=== PATIENT | male | born 1965 | race Caucasian/White ===

== ENCOUNTER 2017-08-02 11:00 | Emergency (ER) | payer OTHER ==
[~2017-08-02] VITALS: Ht 185.4 cm; Wt 95.2 kg
[~2017-08-02 11:00] MED LIST: ALBU90OI61 INH; AMLO5 PO; BENZ100A PO; GUAI600T33 PO; LISI20 PO; Mobic15 MG PO; NAPR550 PO; PRED20 PO
[2017-08-02 11:50] LABS: BASOPHILS ABSOLUTE AUTO 0.08 K/mm3 (0.00-0.23); BASOPHILS PERCENT AUTO 1 % (0-2); EOSINOPHILS ABSOLUTE AUTO 0.08 K/mm3 (0.00-0.68); EOSINOPHILS PERCENT AUTO 1 % (0-6); Hematocrit 40.2 % (37.0-53.0); Hemoglobin 14.2 g/dL (13.5-17.5); IMMATURE GRAN ABSOLUTE AUTO 0.03 K/mm3 (0.00-0.10); IMMATURE GRAN PERCENT AUTO 0 % (0-1); LYMPHOCYTES ABSOLUTE AUTO 1.69 K/mm3 (0.84-5.20); LYMPHOCYTES PERCENT AUTO 25 % (21-46); MONOCYTES ABSOLUTE AUTO 0.46 K/mm3 (0.16-1.47); MONOCYTES PERCENT AUTO 7 % (4-13); Mean Corpuscular HGB 32.4 pg (26.0-34.0); Mean Corpuscular HGB Conc 35.3 g/dL (31.5-36.5); Mean Corpuscular Volume 92 fL (80-100); Mean Platelet Volume 8.5 fL (9.1-12.4); NEUTROPHILS ABSOLUTE AUTO 4.41 K/mm3 (1.96-9.15); NEUTROPHILS PERCENT AUTO 65 % (41-73); Platelet Count 192 K/mm3 (150-400); RDW Coefficient Variation 13.6 % (11.7-14.2); RDW Standard Deviation 45.9 fL (35.1-46.3); Red Blood Cell Count 4.38 M/mm3 (4.30-5.90); White Blood Cell Count 6.75 K/mm3 (4.00-11.30)
[2017-08-02 12:12] LABS: Alanine Aminotransfer (ALT/SGP 36 U/L (12-78); Albumin/Globulin Ratio 0.9 (0.8-1.8); Alk Phos 97 U/L (50-136); Anion Gap 8 mmol/L (6-16); Aspartate Aminotrans (AST/SGOT 55 U/L (12-37); Bilirubin, Total 0.4 mg/dL (0.1-1.0); Blood Urea Nitrogen 13 mg/dL (8-24); Bun/Creatinine Ratio 18.7 (12.0-20.0); CO2, Blood 29 mmol/L (21-32); Calcium, Blood 7.5 mg/dL (8.5-10.1); Chloride, Blood 102 mmol/L (98-108); Globulin, Blood 3.2 g/dL (2.2-4.0); Glomerular Filtration Rate >60 (60-); Glucose, Blood 118 mg/dL (70-99); Potassium, Blood 3.2 mmol/L (3.5-5.5); Sodium, Blood 139 mmol/L (136-145); Total Protein, Blood 6.2 g/dL (6.4-8.2)
[2017-08-02 12:18] LABS: Source, Urine Clean Catch
[2017-08-02 12:20] LABS: Bilirubin, Urine Neg (Neg); Blood, Urine Neg (Neg); Glucose Qualitative, Urine Neg (Neg); Ketones, Urine Neg (Neg); Leukocyte Esterase, Urine Neg (Neg); Nitrite, Urine Neg (Neg); Protein, Urine Neg (Neg); Specific Gravity, Urine 1.015 (1.003-1.022); Urobilinogen, Urine NORM (Normal)
[2017-08-02 12:30] LABS: Appearance, Urine Clear (Clear); Color, Urine Yellow (P-Yellow)
[2017-08-02] MEDS ORDERED: Zofran Odt8 MG SL (16:01)
[2017-08-02] MEDS ORDERED: MOTION RELIEF25 MG PO (16:01)
== END 2017-08-02 16:16 | disposition home or self-care (01) ==
LOC: ER 11:00
PROVIDERS: Emergency Medicine
DX: R42 Dizziness and giddiness (principal); I10 Essential (primary) hypertension; F17.210 Nicotine dependence, cigarettes, uncomplicated; Z79.899 Other long term (current) drug therapy
CPT/HCPCS: 36415; 70450; 80053; 81003; 83690; 85025; 93005; 93010; 96374; 96375; 99284; J2060; J2405

== ENCOUNTER 2020-06-17 09:18 | Emergency (ER) | payer BC ==
[~2020-06-17] VITALS: Ht 177.8 cm; Wt 95.2 kg
[~2020-06-17 09:18] MED LIST changes: +MOTION RELIEF25 MG PO; +Zofran Odt8 MG SL
[2020-06-17 10:17] LABS: BASOPHILS ABSOLUTE AUTO 0.08 K/mm3 (0.00-0.23); BASOPHILS PERCENT AUTO 1 % (0-2); EOSINOPHILS PERCENT AUTO 1 % (0-6); Hematocrit 52.1 % (37.0-53.0); Hemoglobin 18.1 g/dL (13.5-17.5); IMMATURE GRAN ABSOLUTE AUTO 0.05 K/mm3 (0.00-0.10); IMMATURE GRAN PERCENT AUTO 1 % (0-1); LYMPHOCYTES ABSOLUTE AUTO 1.43 K/mm3 (0.84-5.20); LYMPHOCYTES PERCENT AUTO 14 % (21-46); MONOCYTES ABSOLUTE AUTO 0.55 K/mm3 (0.16-1.47); MONOCYTES PERCENT AUTO 5 % (4-13); Mean Corpuscular HGB 33.9 pg (26.0-34.0); Mean Corpuscular HGB Conc 34.7 g/dL (31.5-36.5); Mean Corpuscular Volume 98 fL (80-100); Mean Platelet Volume 9.5 fL (9.1-12.4); NEUTROPHILS ABSOLUTE AUTO 8.39 K/mm3 (1.96-9.15); NEUTROPHILS PERCENT AUTO 79 % (41-73); Platelet Count 286 K/mm3 (150-400); RDW Coefficient Variation 13.2 % (11.7-14.2); RDW Standard Deviation 47.7 fL (35.1-46.3); Red Blood Cell Count 5.34 M/mm3 (4.30-5.90)
[2020-06-17 10:30] LABS: Alanine Aminotransfer (ALT/SGP 38 U/L (12-78); Albumin, Blood 3.9 g/dL (3.4-5.0); Alk Phos 121 U/L (50-136); Anion Gap 10 mmol/L (6-16); Aspartate Aminotrans (AST/SGOT 62 U/L (12-37); Bilirubin, Total 1.2 mg/dL (0.1-1.0); Blood Urea Nitrogen 7 mg/dL (8-24); CO2, Blood 27 mmol/L (21-32); Calcium, Blood 9.3 mg/dL (8.5-10.1); Chloride, Blood 100 mmol/L (98-108); Creatinine, Blood 0.59 mg/dL (0.60-1.20); Globulin, Blood 3.8 g/dL (2.2-4.0); Glomerular Filtration Rate >60 (60-); Glucose, Blood 109 mg/dL (70-99); Potassium, Blood 3.9 mmol/L (3.5-5.5); Sodium, Blood 137 mmol/L (136-145); Total Protein, Blood 7.7 g/dL (6.4-8.2); Troponin I <0.015 ng/mL (0.000-0.040)
[2020-06-17] MEDS ORDERED: ASPI81CH PO (10:53)
[2020-10-15] MEDS ORDERED: GABA100 (12:18)
[2020-10-15] MEDS ORDERED: SERT25 PO (12:18)
[2020-10-15] MEDS ORDERED: Catapres-Tts 21 EACH (12:18)
== END 2020-06-17 13:46 | disposition home or self-care (01) ==
LOC: ER 09:18
PROVIDERS: Emergency Medicine
DX: B34.9 Viral infection, unspecified (principal); I10 Essential (primary) hypertension; F17.210 Nicotine dependence, cigarettes, uncomplicated; Z79.899 Other long term (current) drug therapy
CPT/HCPCS: 36415; 71046; 80053; 83690; 83880; 84484; 85025; 93005; 93010; 99285-25

== ENCOUNTER 2021-03-22 15:58 | Emergency (ER) | payer OTHER ==
[~2021-03-22] VITALS: Ht 175.3 cm; Wt 81.7 kg
[~2021-03-22 15:58] MED LIST changes: +ASPI81CH PO; +Catapres-Tts 21 EACH; +GABA100; +SERT25 PO
[2021-03-22] MEDS ORDERED: Norco 5-325 Ta1 EACH PO (17:12)
== END 2021-03-22 17:23 | disposition home or self-care (01) ==
LOC: ER 15:58
DX: S22.069A Unspecified fracture of T7-T8 vertebra, initial encounter for closed fracture (principal); I10 Essential (primary) hypertension; Z79.899 Other long term (current) drug therapy; F17.210 Nicotine dependence, cigarettes, uncomplicated; W01.0XXA Fall on same level from slipping, tripping and stumbling without subsequent striking against object, initial encounter
CPT/HCPCS: 72070; 99283-25

== ENCOUNTER 2021-11-05 08:33 | Inpatient (IN) | payer OTHER ==
[~2021-11-05] VITALS: Ht 175.3 cm; Wt 95.6 kg
[~2021-11-05 08:33] MED LIST changes: +B COMPLEX FORM0.4 MG PO; +CATAPRES0.1 MG PO; +CHLO25 PO; +GABA300 PO; +METO25 PO; +Norco 5-325 Ta1 EACH PO; +POTCHL20ER PO; +TRAZ50 PO
[2021-11-05 09:05] LABS: BASOPHILS ABSOLUTE AUTO 0.11 K/mm3 (0.00-0.23); BASOPHILS PERCENT AUTO 1 % (0-2); EOSINOPHILS ABSOLUTE AUTO 0.05 K/mm3 (0.00-0.68); EOSINOPHILS PERCENT AUTO 1 % (0-6); Hematocrit 38.3 % (37.0-53.0); Hemoglobin 13.9 g/dL (13.5-17.5); IMMATURE GRAN PERCENT AUTO 1 % (0-1); LYMPHOCYTES ABSOLUTE AUTO 1.42 K/mm3 (0.84-5.20); LYMPHOCYTES PERCENT AUTO 16 % (21-46); MONOCYTES ABSOLUTE AUTO 0.55 K/mm3 (0.16-1.47); MONOCYTES PERCENT AUTO 6 % (4-13); Mean Corpuscular HGB 34.8 pg (26.0-34.0); Mean Corpuscular HGB Conc 36.3 g/dL (31.5-36.5); Mean Corpuscular Volume 96 fL (80-100); NEUTROPHILS PERCENT AUTO 75 % (41-73); NRBC ABSOLUTE 0.02 K/mm3 (0.00-0.02); NRBC Auto 0.2 /100 WBC (0.0-0.2); Platelet Count 161 K/mm3 (150-400); RDW Coefficient Variation 15.9 % (11.7-14.2); RDW Standard Deviation 54.4 fL (35.1-46.3); White Blood Cell Count 8.93 K/mm3 (4.00-11.30)
[2021-11-05 09:17] LABS: Alanine Aminotransfer (ALT/SGP 154 U/L (12-78); Albumin, Blood 1.4 g/dL (3.4-5.0); Albumin/Globulin Ratio 0.4 (0.8-1.8); Alk Phos 873 U/L (50-136); Anion Gap 9 mmol/L (6-16); Aspartate Aminotrans (AST/SGOT 452 U/L (12-37); Bilirubin, Direct 4.4 mg/dL (0.0-0.3); Bilirubin, Indirect 3.3 mg/dL (0.1-0.7); Bilirubin, Total 7.7 mg/dL (0.1-1.0); Blood Urea Nitrogen 4 mg/dL (8-24); CO2, Blood 34 mmol/L (21-32); Calcium, Blood 7.6 mg/dL (8.5-10.1); Chloride, Blood 85 mmol/L (98-108); Creatinine, Blood 0.58 mg/dL (0.60-1.20); Globulin, Blood 3.8 g/dL (2.2-4.0); Glomerular Filtration Rate 116 (60-); Glucose, Blood 102 mg/dL (70-99); Magnesium, Blood 2.5 mg/dL (1.6-2.4); Potassium, Blood 3.9 mmol/L (3.5-5.5); Sodium, Blood 128 mmol/L (136-145); Total Protein, Blood 5.2 g/dL (6.4-8.2)
[2021-11-05 09:20] LABS: Ethanol (Alcohol), Blood, Med <3 mg/dL
[2021-11-05 09:40] LABS: Source, Urine Clean Catch
[2021-11-05 09:46] LABS: Appearance, Urine Clear (Clear); Blood, Urine Neg (Neg); Color, Urine Amber (P-Yellow); Glucose Qualitative, Urine Neg (Neg); Ketones, Urine 1+ (Neg); Leukocyte Esterase, Urine 1+ (Neg); Nitrite, Urine Neg (Neg); Protein, Urine 1+ (Neg); Urobilinogen, Urine 3+ (Normal)
[2021-11-05 09:49] LABS: Base Excess Venous 18.7 mmol/L; Bicarbonate Venous 40.6 mmol/L (24.0-30.0); PCO2 Venous 44.9 mmHg (38-42)
[2021-11-05 09:50] LABS: pH Blood Venous 7.57 (7.34-7.37)
[2021-11-05 09:50] LABS: Bilirubin, Urine 3+ (Neg)
[2021-11-05 09:57] LABS: Bacteria Rare /hpf; Red Blood Cells, Urine Not Seen /hpf (0-2); Squamous Epithelial Cells Not Seen /hpf (Few)
[2021-11-05 10:00] LABS: U Amphetamine Screen Not Detected; U Barbituate Screen Not Detected; U Benzodiazapine Screen DETECTED; U Buprenorphine Screen Not Detected; U Cannabinoids Screen Not Detected; U Cocaine Screen Not Detected; U Methadone Screen Not Detected; U Methamphetamine Screen Not Detected; U Opiates Screen Not Detected; U Oxycodone Screen Not Detected; U Phencyclidine Screen Not Detected; U Propoxyphene Screen Not Detected
[2021-11-05 10:01] LABS: International Normalized Ratio 1.49; Prothrombin Time Results 15.2 Sec (9.7-11.5)
[2021-11-05 10:02] LABS: Influenza A, PCR NEGATIVE (NEGATIVE); Influenza B, PCR NEGATIVE (NEGATIVE); Resp Syncytial Virus, PCR NEGATIVE (NEGATIVE); SARS-Cov-2 (COVID-19) PCR, MMC NEGATIVE (NEGATIVE)
[2021-11-05] MEDS ORDERED: METO50 PO (11:35)
[2021-11-05] MEDS ORDERED: AMLODIPINE BESY10 MG PO (11:36)
[2021-11-05] MEDS ORDERED: CLON.2 PO (11:36)
[2021-11-05] MEDS ORDERED: GABA100 PO (11:37)
[2021-11-05 14:00] LABS: Hematocrit 37.2 % (37.0-53.0); Hemoglobin 13.3 g/dL (13.5-17.5)
--- NOTE | 2021-11-05 18:17 | NUR ---
SHIFT SUMMARY PT ARRIVED TO PCU AT 1500, HE WAS ALERT AND ORIENTED TO SELF, PLACE, FAMILY BUT NOT TO DAY. SPO2 94% VIA 3L NC, HR AND BP STABLE. HE DENIED FEELINGS OF NAUSEA/VOMITTING, PAIN, NOR DID HE APPEAR TREMULOUS. SEE [facility] ASSESSMENT FOR ALCOHOL WITHDRAW. PT REPORTED THAT HIS LAST DRINK WAS LAST Wednesday10/29/21 BUT THIS NURSE SPOKE WITH SHELLEY VARGAS WHO IS THE PT'S EX BUT CURRENT SIGNIFICANT OTHER AND SHE REPORTED THAT HE LAST DRINK WAS WEDNESDAY NIGHT 11/03, WILL PASS ON TO REPORT. PER REPORT FROM ER NURSE, PT IS UNSTEADY ON HIS FEET AND IS A 2 PERSON ASSIST PER [facility]ELDER REPORT. PT HAS BEEN INCONTINENT OF BOTH URINE AND STOOL SINCE ADMISSION, DRY/CLEAN BRIEFS IN PLACE. SANDOSTATIN IS INFUSING PER EMAR ORDERS RIGHT FOREARM IV. HE WAS ORIENTED TO ROOM/UNIT WELL CALL LIGHT USE. HE IS ON A CLEAR LIQUID DIET AND WAS ABLE TO TOLARATE PO INTAKE. NO OTHER ACUTE CHANGES NOTED. WILL CONTINUE TO MONITOR UNITL REPORT GIVEN. CALL LIGHT IN REACH, BED ALARM ON.
--- NOTE | 2021-11-05 21:50 | NUR ---
ASSUMPTION OF CARE Assumed care of pt at 1900. Patient laying in bed. 2L NC in place. Resting with eyes closed and in no apparent distress.
[2021-11-05 22:16] LABS: Hematocrit 35.5 % (37.0-53.0); Hemoglobin 12.5 g/dL (13.5-17.5)
[2021-11-06 06:15] LABS: Hematocrit 36.1 % (37.0-53.0); Hemoglobin 12.9 g/dL (13.5-17.5)
--- NOTE | 2021-11-06 06:20 | NUR ---
SHIFT SUMMARY A/O to self, place and situation but thinks its May and Josephine is the president. CIWA during the night ranged from 0-12, medicated per emar with good relief. Yellowing of the sclera and skin noted. Patient very weak, BR with a full 2 person assist to BSC. Maintains above 90% on 2-5L NC, desats with sleep to 80% so was increased to 5L. Shallow breathing pattern. SR 80's on tele. 2+ pitting edema bl feet, 1+ pitting edema bl calves. Patient had nicotine patch ordered this evening. Patient refuses SCD's at this time. Moderate abdominal distention with hyperactive bowel tones t/o all quadrants. No bowel movement this shift. Incontinent of urine, condom cath placed this shift. Raiza urine. Will report to lambert MEIER.
[2021-11-06 06:39] LABS: Magnesium, Blood 2.4 mg/dL (1.6-2.4)
[2021-11-06 06:40] LABS: Albumin, Blood 1.4 g/dL (3.4-5.0); Albumin/Globulin Ratio 0.5 (0.8-1.8); Bilirubin, Total 6.5 mg/dL (0.1-1.0); Bun/Creatinine Ratio 5.5 (12.0-20.0); Calcium, Blood 7.2 mg/dL (8.5-10.1); Creatinine, Blood 0.54 mg/dL (0.60-1.20); Globulin, Blood 3.1 g/dL (2.2-4.0); Potassium, Blood 2.6 mmol/L (3.5-5.5); Total Protein, Blood 4.5 g/dL (6.4-8.2)
--- NOTE | 2021-11-06 17:44 | NUR ---
PT GONE FOR EGD @ APPROX [id number].
--- NOTE | 2021-11-06 18:18 | NUR ---
11/06/21 1818 Tate Elder History, Chart, Medications and Allergies reviewed before start of procedure.MONITOR INTACT WITH CONTINUOUS PULSE OXIMETRY AND INTERMITTENT BP.3-LEAD EKG REVIEWED WITH PHYSICIAN PRIOR TO START OF PROCEDURE.O2 VIA N/C INTACT THROUGHOUT SEDATION/PROCEDURE. See Anesthesia record.
--- NOTE | 2021-11-06 18:41 | NUR ---
SHIFT SUMMARY PT A&O X4. VSS. SPO2 > 92% ON 5L NC. MONITOR SHOWING SR-ST, HR 90's-110's. PT CIWA: 9 THIS AM, & LAST CIWA SCORE 4 THIS SHIFT. EGD DONE THIS SHIFT. MD STEVENS W/ ORDERS TO DC OCTREOTIDE GTT. NS GTT STILL INFUSING PER ORDERS. CONDOM CATH PATENT & DRAINING DARK AMBBER URINE. BED ALARM ON. PT USING BEDPAN THIS EVENING W/ NO BM, BUT REPORT OF "I GUESS IT'S JUST GAS."
[2021-11-07 04:38] LABS: Hematocrit 35.7 % (37.0-53.0); Hemoglobin 12.4 g/dL (13.5-17.5); Mean Corpuscular HGB 34.3 pg (26.0-34.0); Mean Corpuscular HGB Conc 34.7 g/dL (31.5-36.5); Mean Corpuscular Volume 99 fL (80-100); Mean Platelet Volume 11.5 fL (9.1-12.4); Platelet Count 122 K/mm3 (150-400); RDW Coefficient Variation 17.3 % (11.7-14.2); RDW Standard Deviation 61.1 fL (35.1-46.3); Red Blood Cell Count 3.62 M/mm3 (4.30-5.90); White Blood Cell Count 8.53 K/mm3 (4.00-11.30)
[2021-11-07 04:53] LABS: International Normalized Ratio 1.36
[2021-11-07 04:57] LABS: Albumin, Blood 1.3 g/dL (3.4-5.0); Albumin/Globulin Ratio 0.4 (0.8-1.8); Bilirubin, Total 6.5 mg/dL (0.1-1.0); Bun/Creatinine Ratio 3.7 (12.0-20.0); Calcium, Blood 6.5 mg/dL (8.5-10.1); Creatinine, Blood 0.54 mg/dL (0.60-1.20); Globulin, Blood 3.4 g/dL (2.2-4.0); Potassium, Blood 2.9 mmol/L (3.5-5.5); Total Protein, Blood 4.7 g/dL (6.4-8.2)
--- NOTE | 2021-11-07 06:21 | NUR ---
SHIFT SUMMARY Patient had periods of high anxiety, where he was attempting to get out of bed, when asked where he was going he would say "I'm going home". Patient is redirectable and we are able to get him back in bed. On 4L NC and maintaining over 95%, mainly is needed when patient sleeps. Report no pain, CP/pressure, N/V. CIWA'S averaging 12. Medicated per emar with good effect. Patient still very profoundly weak. SR-ST on tele. No change in ble pitting edema. Condom cath draining large amounts of marvin urine, not nearly as dark as previous night. Patient slept most of the night. Will update dayshift RN.
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
--- NOTE | 2021-11-07 18:20 | NUR ---
SHIFT SUMMARY PT A&O X4 THIS EVENING AFTER INTERMITTENT CONFUSION T/O DAY. VSS. SPO2 > 92% ON 3-5L NC. MONITOR SHOWING ST, HR 100-130's. CIWA: 5-16 THIS SHIFT. PRN IV ATIVAN GIVEN X2 & PO LIBRIUM GIVEN X1 THIS SHIFT. CONDOM CATH REMOVED BY PT THIS SHIFT, NOW REPLACED. CONDOM CATH DRAINING PETTY URINE. PT W/ PASTY, LOOSE DARK GREEN BM's THIS SHIFT, INCONTINENT, WEARING ATTENDS. PT 2 PERSON MAX ASSIST OOB TO CHAIR W/ GB & FWW X1 THIS SHIFT. 2ND ATTEMPT OOB TODAY PT TOO WEAK, ONLY ABLE TO STAND BRIEFLY, THEN HAVING TO SIT BACK DOWN & LAY DOWN IN BED. BED ALARM ON.
--- NOTE | 2021-11-08 05:24 | NUR ---
SHIFT SUMMARY Patient A/Ox3-4. CIWA's ranging from 9-13, medicated per emar with good relief. Maintaining over 92% on 2-5L NC. ST 110's on tele. Denies CP/pressure or N/V. BLE 2+ pitting edema and bl thighs 1+. Patient continually states "I just want to go home", able to educate patient on need to get stronger and to focus on exercises PT prescribed - patient understood the need to get stronger. Urine is still marvin in color. Small BM this evening, soft dark green. Scleral and skin yellowing still noted. Will update dayshift RN.
[2021-11-08 05:58] LABS: Albumin, Blood 1.5 g/dL (3.4-5.0); Anion Gap 9 mmol/L (6-16); Blood Urea Nitrogen 1 mg/dL (8-24); Bun/Creatinine Ratio 1.9 (12.0-20.0); CO2, Blood 30 mmol/L (21-32); Calcium, Blood 7.3 mg/dL (8.5-10.1); Chloride, Blood 101 mmol/L (98-108); Creatinine, Blood 0.53 mg/dL (0.60-1.20); Glomerular Filtration Rate 119 (60-); Glucose, Blood 116 mg/dL (70-99); Phosphorus, Blood 1.1 mg/dL (2.5-4.9); Potassium, Blood 2.7 mmol/L (3.5-5.5); Sodium, Blood 140 mmol/L (136-145)
--- NOTE | 2021-11-08 09:53 | NUR ---
CARE ASSUMPTION PT A&O TO SELF, MONTH & YEAR. PT DISORIENTED TO PLACE & EVENT OF WHY IN HOSPITAL. PT REQUIRING FREQUENT REMINDING/REASONING OF NEED TO BE IN HOSPITAL DESPITE PT FREQUENTLY STATING "I WANT TO GO HOME". PT CIWA 11 THIS AM. VSS. SPO2 > 92% ON 4L NC. MONITOR SHOWING ST, HR 100-110's. HR UP TO 150's w/ GETTING UP TO BSC THIS AM. PT 2 PERSON HEAVY ASSIST W/ GB & FWW. PT DIFFICULTY FOLLOWING VERBAL CUES FOR TRANSFERING & LEGS GIVING OUT ON PT. PT ONLY ABLE TO STAND & PIVOT FROM BED TO BSC & BACK. PT BACK IN BED W/ BED ALARM ON.
--- NOTE | 2021-11-08 17:30 | NUR ---
SHIFT SUMMARY PT CONTINUES TO BE A&O X3 REQUIRING REORIENTATION & REDIRECTION AT TIMES. PT CIWA: 10-13 THIS SHIFT. PRN PO LIBRIUM GIVEN X2 THIS SHIFT & PRN IV ATIVAN GIVEN X1. VSS. SPO2 > 92% ON 3-5L NC. MONITOR SHOWING ST, HR 100-110's W/ HR INCREASE TO 150's W/ ACTIVITY. CONDOM CATH PULLED BY PT, REPLACED X2 THIS SHIFT. PT REQUESTING TO GO HOME T/O DAY. PT EX- TO BEDSIDE TODAY, PT NOW CALLING OUT HER NAME LOOKING FOR HER. PT REMINDED SHE IS NO LONGER HERE. PT IN BED W/ BED ALARM ON.
--- NOTE | 2021-11-08 20:22 | NUR ---
ASSUMED CARE PT AWAKE AND A/O X3 SAYS HE IS IN A LONG TERM AND WANTS TO GO HOME. VITALS ARE STABLE AND HE IS ON 3L NC WITH SATS ABOVE 95%. DENIES CHEST PAIN OR SOB. DENIES GENERAL PAIN. CIWA IS 12. LEGS ARE RESTLESS AND HAND ARE VISIBLY TREMOROUS. CALL LIGHT IS WITHIN REACH AND BED ALARM IS ACTIVE.
--- NOTE | 2021-11-09 05:30 | NUR ---
PT UPDATE PT REPORTING FEELING ANXIOUS. SAYING HE WANTED HIS LETTER THAT WAS UNDER HIS BED. THIS NUSE ASKED PT WHAT THE LETTER SAID AND HE SHOOK HIS HEAD AND MUMBLED "NO." PT TOLD THIS NURSE TO CALL HIS SISTER ORLANDO, THAT HE WANTED TO TALK TO HER. THE NUMBER DIALED WAS THERESA'S (EX WIFES). PT THEN TOLD HER THAT HE WANTED HIS LETTER AND FOR HER TO PUT IT BACK UNDER HIS BED. WHILE TALKING TO THERESA HR INCREASED TO [address] CORREA WAS CALLED AND GAVE ORDER OF ADENOSINE 6MG NOW. CHARGE NURSE ASSESSED PT HEART RATE THEN DECREASED TO 100-110'S. ADENOSINE WAS HELD AND CHARTED AGAINST IN EMAR. PT'S HR REMAINED 100-110'S.
[2021-11-09 05:50] LABS: Albumin, Blood 1.4 g/dL (3.4-5.0); Albumin/Globulin Ratio 0.4 (0.8-1.8); Bun/Creatinine Ratio 3.5 (12.0-20.0); Calcium, Blood 7.2 mg/dL (8.5-10.1); Creatinine, Blood 0.57 mg/dL (0.60-1.20); Globulin, Blood 3.5 g/dL (2.2-4.0); Phosphorus, Blood 2.2 mg/dL (2.5-4.9); Potassium, Blood 3.3 mmol/L (3.5-5.5); Total Protein, Blood 4.9 g/dL (6.4-8.2)
--- NOTE | 2021-11-09 06:44 | NUR ---
SHIFT SUMMARY PT ALERT AND ORIENTED X3. PT DENIES CHEST PAIN/PRESSURE OR SOB. PT'S CIWAS HAVE RANGED FROM 6 TO 13. SATS HAVE BEEN ABOVE 92% ON 3L NC. PT HAD BEEN ANXIOUS AND RESTLESS BEFORE MIDNIGHT. HE HAD BEEN THROWING LEGS OVER BED, TAKING OFF NC AND SAYING HE WANTS TO GO HOME AND HAVE EX OR SON TO COME GET HIM. THIS AM WHEN WAKING UP FOR VITALS PT BECAME ANXIOUS AND AGITATED AND WANTED TO CALL EX . SEE PREVIOUS NOTE. WENT INTO SVT UP TO 170-180. DR CORREA WAS CALLED. WHEN PT HUNG UP PHONE HE WENT BACK DOWN INTO 110'S, HR REMAINED STABLE. HE IS STILL WANTING SON CALLED TO COME GET HIM. CALL LIGHT IS WITHIN REACH. BED ALARM IS ACTIVE.
--- NOTE | 2021-11-09 07:30 | NUR ---
ASSUMED CARE: PT RESTING QUIETLY AT THIS TIME. SINUS TACH AT 103 ON TELE. ON RA, BED ALARM IN PLACE. ROUSES WHEN NAME IS CALLED BUT GOES BACK TO RESTING. NO ACUTE NEEDS AT THIS TIME.
--- NOTE | 2021-11-09 14:16 | NUR ---
PT'S FAMILY AT BEDSIDE. OFFERED TO GET PT UP INTO CHAIR PER DR WALLACE'S ORDERS. PT WANTED TO TRY. GOT PT TO EDGE OF BED WITH FEET DANGLING. RN'S HAND WAS BETWEEN PT'S SHOULDER BLADES AND THIS WAS REQUIRED FOR TRUNK SUPPORT. PT WAS UNABLE TO MAINTAIN BALANCE OTHERWISE, DIFFICULTY FOLLOWING INSTRUCTIONS TO THIS POINT. PT FINALLY STATED HE WAS TIRED AND WANTED TO GET BACK TO BED. BED ALARM ON.
--- NOTE | 2021-11-09 17:45 | NUR ---
SHIFT SUMMARY: PT MEDICATED MULTIPLE TIMES TODAY FOR CIWA 11-14. FAMILY CAME TO VISIT PT. ATTEMPTED TO GET HIM UP TO A CHAIR BUT PT WAS TOO WEAK AND TIRED TO DO SO. INCONTINENT. CONFUSED AT TIMES. RESTING QUIETLY AT THIS TIME. NO ACUTE NEEDS OR CONCERNS.
--- NOTE | 2021-11-10 06:30 | NUR ---
SHIFT SUMMARY PT HAS IS A/OX3. VITALS HAVE BEEN STABLE AND IS ON 2L NC WITH SATS ABOVE 92%. HE DENIES CHEST PAIN/PRESSURE OR SOB. PT HAS BEEN SLEEPING MOST OF THE NIGHT BUT WHEN AWAKE ASKS TO CALL "THERESA" (EX ). HE GET TEARY AND SAYS HE WANTS TO GO HOME AND WANTS HER TO COME PICK HIM UP. HE HAS PUT LEGS OUT OF BED AND TAKEN OFF NC AND TELE SEVERAL TIMES. HE DID RECIEVE LIBRIUM ONCE BEFORE 2100 AND HAS NOT NEEDED ANY T/O THE REST OF THE NIGHT. CIWAS RANGE FROM 8-12. HE IS INCONT IN BRIEF. CALL LIGHT IS WITHIN REACH. BED ALARM IS ACTIVE.
[2021-11-10 06:34] LABS: Hematocrit 42.4 % (37.0-53.0); Hemoglobin 14.2 g/dL (13.5-17.5); Mean Corpuscular HGB 34.6 pg (26.0-34.0); Mean Corpuscular HGB Conc 33.5 g/dL (31.5-36.5); Mean Corpuscular Volume 103 fL (80-100); Mean Platelet Volume 11.2 fL (9.1-12.4); Platelet Count 122 K/mm3 (150-400); RDW Standard Deviation 67.8 fL (35.1-46.3)
[2021-11-10 06:50] LABS: Albumin, Blood 1.3 g/dL (3.4-5.0); Albumin/Globulin Ratio 0.4 (0.8-1.8); Bilirubin, Total 7.7 mg/dL (0.1-1.0); Bun/Creatinine Ratio 3.6 (12.0-20.0); Calcium, Blood 7.2 mg/dL (8.5-10.1); Creatinine, Blood 0.56 mg/dL (0.60-1.20); Globulin, Blood 3.6 g/dL (2.2-4.0); Potassium, Blood 3.6 mmol/L (3.5-5.5); Total Protein, Blood 4.9 g/dL (6.4-8.2)
--- NOTE | 2021-11-10 17:25 | NUR ---
SHIFT SUMMARY PT A/O X 2-3. VSS THROUGHOUT SHIFT WITH O2 SATS > 91% ON 3L NC. NO REPORT OF CHEST PAIN/PRESSURE THROUGHOUT SHIFT. NO REPORT OF SOB/DYSPNEA THROUGHOUT SHIFT. PT TRIED CLIIMBING OUT OF BED A COUPLE TIMES SETTING OFF BED ALARM DURING SHIFT, PT COOPERATIVE WHEN ASKED TO RETURN TO BED. PT ABLE TO LIFT ARMS AND SQUEEZE THIS RN'S FINGERS, UNABLE TO LIFT HIPS WHILE IN BED. CIWAS ON PT SCARED 6-7 THROUGHOUT SHIFT. PT ABLE TO ROLL SELF FOR BED VASQUEZ AND BED CHANGES.
--- NOTE | 2021-11-11 07:29 | NUR ---
SHIFT SUMMARY THERE HAVE BEEN NO ACUTE CHANGES T/O THE NIGHT. PT'S VITALS HAVE BEEN STABLE. ON 2L NC WITH SATS ABOVE 92%. PT DENIES CHEST PAIN OR SOB. HE IS A MAX ASSIST WITH TURNS AND IS INCONT IN BRIEF. HE WILL ASK FOR THE URINAL AT TIMES. CALL LIGHT IS WITHIN REACH. BED ALARM IS ACTIVE.
--- NOTE | 2021-11-11 08:20 | NUR ---
AM ASSESSMENT: Pt laying in bed. Oriented but slow to respond. VSS. LS diminished, especially on L side. HR reg. BT hyperactive. Pulses palp. Pitting edema in BLE. Pt denies pain. Sclara yellow in appearance and urine very dark. Will continue to monitor Pt's needs. Call light in reach.
--- NOTE | 2021-11-11 17:54 | NUR ---
SHIFT SUMMARY: Pt VSS throughout shift. Was able to be titrated off of oxygen today. PT worked with PT, still very weak and was a 2 person max assist to chair and then back to bed. Pt still slow to respond, but appropriate. Pt changed to medical status and transfered to medical floor room 355 at 1800. Report was given, care transfered, stable at end of shift.
--- NOTE | 2021-11-11 18:19 | NUR ---
PT ARRIVED TO ROOM AT 1755 VIA BED. PT HAS BEEN RESTING SINCE ARRIVAL. NO DISTRESS NOTED. BED ALARM ON AND CALL LIGHT WITHIN REACH WILL CONTINUE TO MONITOR.
--- NOTE | 2021-11-12 06:05 | NUR ---
PT INCONTINENT OF URINE, CHANGED DURING NIGHT. PT CALLED REQUESTING BSC, 2X ASSIST WITH WALKER. PT APPEARS MORE JAUNDICED, WEAK AND UNABLE TO STAY AWAKE. NO MORNING LABS ORDERED. SECRETARY BOOKKEEPER MD ORDERED CMP, CBC AND AMMONIA. PTS URINE AND STOOL MALODEROUS AND GREENISH YELLOW. PT COULD NOT STAY AWAKE FOR PILLS THIS MORNING AND NEEDED FREQUENT REMINDERS TO SWALLOW.
[2021-11-12 06:07] LABS: Albumin, Blood 1.1 g/dL (3.4-5.0); Albumin/Globulin Ratio 0.3 (0.8-1.8); Calcium, Blood 7.6 mg/dL (8.5-10.1); Creatinine, Blood 0.5 mg/dL (0.60-1.20); Potassium, Blood 3.9 mmol/L (3.5-5.5); Total Protein, Blood 5.1 g/dL (6.4-8.2)
[2021-11-12 06:26] LABS: BASOPHILS ABSOLUTE AUTO 0.14 K/mm3 (0.00-0.23); BASOPHILS PERCENT AUTO 2 % (0-2); EOSINOPHILS ABSOLUTE AUTO 0.12 K/mm3 (0.00-0.68); EOSINOPHILS PERCENT AUTO 2 % (0-6); Hematocrit 45.5 % (37.0-53.0); Hemoglobin 15.5 g/dL (13.5-17.5); IMMATURE GRAN ABSOLUTE AUTO 0.13 K/mm3 (0.00-0.10); IMMATURE GRAN PERCENT AUTO 2 % (0-1); LYMPHOCYTES ABSOLUTE AUTO 1.47 K/mm3 (0.84-5.20); LYMPHOCYTES PERCENT AUTO 19 % (21-46); MONOCYTES PERCENT AUTO 10 % (4-13); Mean Corpuscular HGB 34.5 pg (26.0-34.0); Mean Corpuscular HGB Conc 34.1 g/dL (31.5-36.5); Mean Corpuscular Volume 101 fL (80-100); NEUTROPHILS ABSOLUTE AUTO 5.09 K/mm3 (1.96-9.15); NEUTROPHILS PERCENT AUTO 66 % (41-73); Platelet Count 178 K/mm3 (150-400); RDW Coefficient Variation 17.3 % (11.7-14.2); RDW Standard Deviation 65.2 fL (35.1-46.3); Red Blood Cell Count 4.49 M/mm3 (4.30-5.90); White Blood Cell Count 7.75 K/mm3 (4.00-11.30)
--- NOTE | 2021-11-12 17:41 | NUR ---
Patient has been very drowsy and weak throughout shift. Follows commands but is slow to respond. Assisted to bedside commode this morning but was unable to void. Patient has otherwise been incontinent. Aids had difficulty with 2 person transfer to commode, recommend using lift for future transfer. Patient is heavy and unsteady without significant assistance. Shift has otherwise been unremakable. Call light left within reach.
--- NOTE | 2021-11-12 17:49 | NUR ---
PLEASE REFER TO STUDENT NOTE FOR SHIFT SUMMARY.
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
--- NOTE | 2021-11-13 05:18 | NUR ---
SHIFT SUMMARY PT SLEPT OFF AND ON THIS EVENING. SOME INTERMITTENT CONFUSION. PT IS SLOW TO RESPOND. ANSWERS IN SIMPLE ONE TO THREE WORD SENTENCES. CIWA'S 3. PT CONTINUES TO HAVE CONSTANT SLIGHT TREMORS. DOES NOT APPEAR ANXIOUS. SKIN AND EYES JAUNDICED. PT PLACED ON 2 L VIA NC. O2 SATS IN THE MID TO HIGH 80'S ON RA. LOW TO MID 90'S ON 2 L. PT DOES INTERMITTENTLY ATTEMPT TO GET OOB. VERY WEAK. ONLY ABLE TO GET LEGS TO THE SIDE OF THE BED. BED ALARM ON. PT DENIES ANY PAIN. VITAL SIGNS STABLE. WILL CONTINUE TO MONITOR.
--- NOTE | 2021-11-13 16:51 | NUR ---
PT ARRIVED TO ROOM 350 FROM ROOM 355 VIA BED. REPORT TAKEN FROM JUAN MEIER. THE PT WAS ORIENTED TO THE ROOM LAYOUT AND CALL SYSTEM. CALL LIGHT IN REACH. THE PT APPEARS TO BE BREATHING EASILY ON O2 @ 2L/MIN AT THIS TIME. SCD'S APPLIED TO THE PTS CALFS PER HIS REQUEST. THE PT IS JAUNDICE IN COLOR WILL CONTINUE TO MOMNITOR AND ASSESS FOR CHANGES
--- NOTE | 2021-11-13 17:09 | NUR ---
TRANSFER OF PT FROM ROOM 355 TO ROOM 350 SCU. REPORT GIVEN TO RECEIVING NURSE. PT BELONGINGS GATHERED AND TRANSFERED ALONG WITH PT. THROUGH OUT DAY PT WOULD TRIED TO GET HIMSELF UP FROM BED THROUGH THE RAILS CAUSING HIMSELF TO BECOME WEDGED BETWEEN THE RAILS. PT NEEDED REDIRECTING TO UNDERSTAND HE IS WEAK AND UNABLE TO WALK AROUND ROOM. AFTER MANY ATTEMPTS BY PT TO GET OUT OF BED WHILE BEING A FALL RISK, PT HAS BEEN TRANSFERED TO SCU FOR CLOSER MONITORING.
--- NOTE | 2021-11-14 04:37 | NUR ---
SHIFT SUMMARY - NO ACUTE CHANGES THROUGHOUT THIS SHIFT. PT DENIED ANY PAIN OR DISCOMFORT THROUGHOUT THE NIGHT. PER PNEUMATIC TOOL OPERATOR, PT HAD A LIQUID BROWN STOOL X1 LAST NOC. PT'S HAS EDEMA TO HIPS, UPPER THIGHS, AND FEET - HIPS, UPPER THIGHS - 2- 3+, AND FEET 2+. PT WAS ABLE TO MAKE HIS NEEDS KNOWN THROUGHOUT THE NIGHT. PAS ON UNTIL APPX MIDNIGHT, PT REQUESTED THEM OFF AT THIS TIME. FLUIDS AT BEDSIDE. CALL LIGHT WITHIN REACH. BED IN LOW POSITION. WILL CONTINUE TO MONITOR UNTIL AM SHIFT CHANGE.
--- NOTE | 2021-11-14 04:55 | NUR ---
ADDITIONAL NOTE - SCLERA AND SKIN VERY JAUNDICED.
[2021-11-14 06:59] LABS: Albumin, Blood 1.3 g/dL (3.4-5.0); Anion Gap 11 mmol/L (6-16); Blood Urea Nitrogen 5 mg/dL (8-24); Bun/Creatinine Ratio 9.9 (12.0-20.0); CO2, Blood 25 mmol/L (21-32); Chloride, Blood 105 mmol/L (98-108); Creatinine, Blood 0.51 mg/dL (0.60-1.20); Glomerular Filtration Rate 120 (60-); Glucose, Blood 75 mg/dL (70-99); Magnesium, Blood 1.5 mg/dL (1.6-2.4); Phosphorus, Blood 2.5 mg/dL (2.5-4.9); Potassium, Blood 3.3 mmol/L (3.5-5.5); Sodium, Blood 141 mmol/L (136-145)
--- NOTE | 2021-11-14 17:45 | NUR ---
SHIFT SUMMARY PTN ALERT AND ORIENTED X3. PTN WITH SLOW RESPONSE AND COORDINATION CHALLENGES WITH HIS FOOD TRAY. PTN INCONTINENT OF BOWEL AND BLADDER. SEEN BY PT TODAY, UP TO CHAIR FOR APPROX 2 HOURS AFTER. PTN NOT HAPPY WITH SITTING UP SO LONG, BUT MANAGED WITHOUT DIFFICULTY. SLIGHT EDEMA IN LEFT ANKLE AND 2+ IN RIGHT. SACRAL AREA WITH REDNESS TO THE INTERGLUTEAL CLEFT THAT BLANCHES. NO BREAK IN SKIN. FOAM DRESSING REPLACED FOR PROTECTIVE COVERAGE. PTN HAD VISIT AND PHONE CALL DURING SHIFT. PTN OTHERWISE SLEPT MUCH OF SHIFT, EASILY AROUSABLE.
--- NOTE | 2021-11-15 05:21 | NUR ---
SHIFT SUMMAR PATIENT ALERT AND ORIENTED X3. HAD NO COMPLAINTS OF PAIN OR SHORTNESS OF BREATH. PATIENT IS VERY WEAK REQUIRING TWO MAX ASSIST WHEN TRANSFERRING TO COMMODE. NO ACUTE ISSUES NOTED OVERNIGHT. BED IN LOWEST POSITION WITH WHEELS LOCKED AND ALARM ON. CALL LIGHT WITHIN REACH. REPORT GIVEN TO ONCOMING RN.
[2021-11-15 09:01] LABS: Magnesium, Blood 1.9 mg/dL (1.6-2.4)
[2021-11-15 09:02] LABS: Albumin, Blood 1.4 g/dL (3.4-5.0); Anion Gap 5 mmol/L (6-16); Blood Urea Nitrogen 5 mg/dL (8-24); Bun/Creatinine Ratio 9.7 (12.0-20.0); CO2, Blood 29 mmol/L (21-32); Calcium, Blood 7.9 mg/dL (8.5-10.1); Chloride, Blood 104 mmol/L (98-108); Creatinine, Blood 0.51 mg/dL (0.60-1.20); Glomerular Filtration Rate 120 (60-); Glucose, Blood 90 mg/dL (70-99); Phosphorus, Blood 2.4 mg/dL (2.5-4.9); Potassium, Blood 3.3 mmol/L (3.5-5.5); Sodium, Blood 138 mmol/L (136-145)
--- NOTE | 2021-11-15 16:20 | NUR ---
SHIFT SUMMARY- PT ALERT AND ORIENTED TO SELF, PLACE AND FAMILY. PT HAD FAMILY COME TO VISIT HIM TODAY AROUND 10AM THEY BROUGHT HIM A LALA CHEESBURGER WHICH HE ATE ENTIRELY. PT DID NOT EAT LUNCH, BUT HE HAD A MEAL. PT HAD A HARD FORMED STOOOL TODAY USING THE BEDPAN. PT FREQUENTLY CALLS AND ASKES OR THE COMMODE SO HE CAN VOID, URINAL IS PROVIDED BUT HE HAS ALREADY GONE BY THE TIME IT IS IN PLACE. ADDITIONAL LINER PLACED IN ATTENDS PT VOIDS LARGE AMOUNTS WHEN HE GOES. PT IS A 2P MAX ASSIST FOR ALL TRANSFERS WITH A GAIT BELT. 1-2 PA FOR ROLL AND CHANGE. PT JUST CHANGED, LAYING IN BED, CALL LIGHT IN REACH NO S&S OF DISTRESS, O2 AT 2L VIA NC AT [facility]. WILL CTM AND PASS ON TO NIGHT RN IN BEDSIDE REPORT.
[2021-11-16 05:19] LABS: Albumin, Blood 1.3 g/dL (3.4-5.0); Anion Gap 7 mmol/L (6-16); Blood Urea Nitrogen 4 mg/dL (8-24); Bun/Creatinine Ratio 7.8 (12.0-20.0); CO2, Blood 28 mmol/L (21-32); Calcium, Blood 8.2 mg/dL (8.5-10.1); Chloride, Blood 104 mmol/L (98-108); Creatinine, Blood 0.51 mg/dL (0.60-1.20); Glomerular Filtration Rate 120 (60-); Glucose, Blood 90 mg/dL (70-99); Phosphorus, Blood 2.8 mg/dL (2.5-4.9); Potassium, Blood 3.3 mmol/L (3.5-5.5); Sodium, Blood 139 mmol/L (136-145)
--- NOTE | 2021-11-16 06:09 | NUR ---
SHIFT SUMMARY PATIENT ALERT AND ORIENTED X3. HAD NO COMPLAINTS OF PAIN OR SHORTNESS OF BREATH. NO ACUTE ISSUES NOTED OVERNIGHT. CALL LIGHT WITHIN REACH. REPORT GIVEN TO ONCOMING RN.
--- NOTE | 2021-11-16 15:24 | NUR ---
SPOKE TO ASSISTANT MEN'S LACROSSE COACH- PT IS ABLE TO PIVOT TRANSFER TO A CHAIR WITH 2P MAX ASSIST, HOWEVER HE IS NOT STRONG ENOUGH TO TRANSFER TO THE SHOWER. REQUESTED THIS PT BE MOVED TO ROOM 352 FOR THE ROLL IN SHOWER FEATURE. PT IS AWARE OF THE PLAN TO CHANGE ROOMS, AND THE PROSPECT OF A SHOWER MADE HIM HAPPY. PT FACE WAS SHAVED EARLIER IN THE SHIFT. PT OT UP INT THE CHAIR ONCE TODAY PRIOR TO LUNCH WHERE HE PERFORMED HIS CHAIR EXERCISES.
--- NOTE | 2021-11-16 17:17 | NUR ---
SHIFT SUMMARY- PT ALRT AND ORIENTED TO SELF AND FAMILY. PT WAS UP TO THE CHAIR TODAY AND DID HIS CHAIR EXERCISES ONCE. PLAN IS TO TRANSFER PT TO ANOTHER ROOM WHERE HE CAN HAVE A FULL SHOWER, PRIOR TO SHIFT CHANGE. PT CURRENTLY IN BED, CALL LIGHT IN REACH, PT CALLS SOME, BED ALARM ON FOR PT SAFETY. WILL CTM AND PASS ON TO NIGHT RN IN BEDSIDE REPORT.
--- NOTE | 2021-11-17 06:43 | NUR ---
SHIFT SUMMARY PATIENT ALERT AND ORIENTED X3. HAD NO COMPLAINTS OF PAIN OR SHORTNESS OF BREATH. MEDICATED PER EMAR FOR NAUSEA. NO ACUTE ISSUES NOTED OVERNIGHT. CALL LIGHT WITHIN REACH. REPORT GIVEN TO ONCOMING RN.
--- NOTE | 2021-11-17 18:31 | NUR ---
SHIFT SUMMARY PATIENT DENIES PAIN, NAUSEA, AND SHORTNESS OF BREATH. PATIENT IS A 2P FOR TRANSFERS. PATIENT A&O X4. DISCONTINUED CIWA. PATIENT SLEPT ON AND OFF THIS SHIFT. PATIENT HAD VISITOR IN AFTERNOON. PATIENT VERY WEAK. PT IS RECOMMENDING SNF. PATIENT IS EATING AND DRINKING WELL. PATIENT STATES REGULAR ENSURES GIVE PATIENT STOMACH ACHE, NOTIFIED, ORDERS FOR CLEAR ENSURES ONLY. PATIENT IS PLEASANT AND COOPERATIVE WITH CARE.
--- NOTE | 2021-11-18 04:11 | NUR ---
SHIFT SUMMARY A/O 2-3, FORGETFUL AT TIMES. 2P MAX ASSIST FOR TRANSFERS. INCONT, ATTENDS IN PLACE. VSS, NO ACUTE CHANGES AT THIS TIME. BED IN LOWEST POSITION WITH CALL LIGHT IN REACH. WILL CONTINUE TO MONITOR AND REPORT TO ONCOMING RN.
[2021-11-18 08:58] LABS: Albumin, Blood 1.2 g/dL (3.4-5.0); Anion Gap 7 mmol/L (6-16); Blood Urea Nitrogen 4 mg/dL (8-24); Bun/Creatinine Ratio 9.7 (12.0-20.0); CO2, Blood 25 mmol/L (21-32); Calcium, Blood 8.4 mg/dL (8.5-10.1); Chloride, Blood 104 mmol/L (98-108); Creatinine, Blood 0.41 mg/dL (0.60-1.20); Glomerular Filtration Rate 129 (60-); Glucose, Blood 82 mg/dL (70-99); Phosphorus, Blood 2.7 mg/dL (2.5-4.9); Potassium, Blood 3.6 mmol/L (3.5-5.5); Sodium, Blood 136 mmol/L (136-145)
[2021-11-18 12:47] LABS: Influenza A, PCR NEGATIVE (NEGATIVE); Influenza B, PCR NEGATIVE (NEGATIVE); Resp Syncytial Virus, PCR NEGATIVE (NEGATIVE); SARS-Cov-2 (COVID-19) PCR, MMC NEGATIVE (NEGATIVE)
--- NOTE | 2021-11-18 16:33 | NUR ---
DISCHARGE SUMMARY IV REMOVED PRIOR TO DISCHARGE. PT TRANSFERED TO [facility] VIA WHEELCHAIR VAN TRANSPORT. PT DID NOT HAVE ANY PERSONAL BELONGINGS IN ROOM. ATTEMPTED TO CALL REPORT TO [facility] X3 AND WAS PUT ON HOLD EACH TIME WITHOUT NURSE COMING TO PHONE. LEFT NAME AND NUMBER WITH PERSON ATTEMPTING TO TRANSFER MY CALL TO THE RECIEVING NURSE. PAPER WORK SENT WITH PT TO [facility].
[2021-11-18] MEDS ORDERED: OMEP20ER PO (16:46)
[2021-11-18] MEDS ORDERED: ALDACTONE25 MG PO (16:47)
[2021-11-18] MEDS ORDERED: PROP10 PO (16:49)
== END 2021-11-18 14:37 | DRG 432 ==
LOC: ER 08:33 → PCU 13:20 → MEDS 11-11 17:56
PROVIDERS: Internal Medicine; Nurse Practitioner Acute Care; Student in an Organized Health Care Education/Training Program; ADMIT Internal Medicine
DX: K70.10 Alcoholic hepatitis without ascites (principal); J96.01 Acute respiratory failure with hypoxia; K25.4 Chronic or unspecified gastric ulcer with hemorrhage; K76.6 Portal hypertension; F10.231 Alcohol dependence with withdrawal delirium; G93.49 Other encephalopathy; E87.1 Hypo-osmolality and hyponatremia; E87.4 Mixed disorder of acid-base balance; E44.0 Moderate protein-calorie malnutrition; Z20.822 Contact with and (suspected) exposure to COVID-19; E87.6 Hypokalemia; K31.89 Other diseases of stomach and duodenum; I95.9 Hypotension, unspecified; E86.0 Dehydration; E86.9 Volume depletion, unspecified; D69.6 Thrombocytopenia, unspecified; E83.39 Other disorders of phosphorus metabolism; I10 Essential (primary) hypertension; F17.210 Nicotine dependence, cigarettes, uncomplicated; Z79.82 Long term (current) use of aspirin; Z79.899 Other long term (current) drug therapy
CPT/HCPCS: 0241U; 36415; 71046; 74177; 80048; 80053; 80069; 80076; 81001; 82140; 82272; 82803; 82947; 83690; 83735; 83880; 84100; 84443; 84484; 85014; 85018; 85025; 85027; 85610; 85730; 87086; 88305; 88342; 93005; 93010; 94640; 94664; 94760; 94762; 96365; 96366; 96375; 97110; 97162; 97530; 99285-25; A9270; C1751; C9113; G0480; J0153; J0696; J2060; J2354; J2370; J2405; J2704; J3411; J3475; J3480; J7030; J7040; J7050; J7060; J7120; Q9967

== ENCOUNTER → 2021-11-20 | Outpatient (CLI) | payer OTHER ==
[~2021-11-20] MED LIST changes: +ALDACTONE25 MG PO; +AMLODIPINE BESY10 MG PO; +CLON.2 PO; +GABA100 PO; +METO50 PO; +OMEP20ER PO; +PROP10 PO
[2021-11-20 09:32] LABS: Hematocrit 44.3 % (37.0-53.0); Hemoglobin 14.8 g/dL (13.5-17.5); Mean Corpuscular HGB 34.2 pg (26.0-34.0); Mean Corpuscular HGB Conc 33.4 g/dL (31.5-36.5); Mean Corpuscular Volume 102 fL (80-100); Mean Platelet Volume 11.7 fL (9.1-12.4); Platelet Count 218 K/mm3 (150-400); RDW Coefficient Variation 16.5 % (11.7-14.2); RDW Standard Deviation 62.9 fL (35.1-46.3); Red Blood Cell Count 4.33 M/mm3 (4.30-5.90); White Blood Cell Count 6.56 K/mm3 (4.00-11.30)
[2021-11-20 09:45] LABS: Bun/Creatinine Ratio 13.9 (12.0-20.0); Calcium, Blood 8.7 mg/dL (8.5-10.1); Creatinine, Blood 0.43 mg/dL (0.60-1.20); Potassium, Blood 3.1 mmol/L (3.5-5.5)
== END | disposition home or self-care (01) ==
LOC: LAB RH 08:39 → EDSTATUS 13:15
PROVIDERS: Internal Medicine
DX: K76.6 Portal hypertension (principal); K70.11 Alcoholic hepatitis with ascites
CPT/HCPCS: 80048; 85027

== ENCOUNTER → 2021-12-15 | Outpatient (CLI) | payer OTHER | END | disposition home or self-care (01) | LOC: LAB HH 12:55 → LAB SHORT 12:55 | DX: K76.6 Portal hypertension (principal) | CPT/HCPCS: 83735 ==

== ENCOUNTER 2022-03-04 19:37 | Emergency (ER) | payer OTHER ==
[~2022-03-04] VITALS: Ht 195.6 cm; Wt 86.2 kg
[2022-03-04] MEDS ORDERED: BENADRYL25 MG PO (21:03)
[2022-03-04] MEDS ORDERED: Pepcid20 MG PO (21:03)
[2022-03-04] MEDS ORDERED: METPRE4DP PO (21:03)
== END 2022-03-04 21:12 | disposition home or self-care (01) ==
LOC: ER 19:37
DX: L27.1 Localized skin eruption due to drugs and medicaments taken internally (principal); T43.015A Adverse effect of tricyclic antidepressants, initial encounter; I10 Essential (primary) hypertension; F17.210 Nicotine dependence, cigarettes, uncomplicated; Z79.899 Other long term (current) drug therapy
CPT/HCPCS: 99283; A9270; J7512

== ENCOUNTER 2023-02-01 01:24 | Emergency (ER) | payer OTHER ==
[~2023-02-01] VITALS: Ht 177.8 cm; Wt 95.2 kg
[~2023-02-01 01:24] MED LIST changes: +BENADRYL25 MG PO; +METPRE4DP PO; +Pepcid20 MG PO
[2023-02-01] MEDS ORDERED: PREG25 (01:38)
[2023-02-01 01:56] LABS: BASOPHILS ABSOLUTE AUTO 0.07 K/mm3 (0.00-0.23); BASOPHILS PERCENT AUTO 0 % (0-2); EOSINOPHILS PERCENT AUTO 1 % (0-6); Hematocrit 45.6 % (37.0-53.0); Hemoglobin 16.4 g/dL (13.5-17.5); IMMATURE GRAN ABSOLUTE AUTO 0.28 K/mm3 (0.00-0.10); IMMATURE GRAN PERCENT AUTO 2 % (0-1); LYMPHOCYTES PERCENT AUTO 5 % (21-46); MONOCYTES ABSOLUTE AUTO 0.73 K/mm3 (0.16-1.47); MONOCYTES PERCENT AUTO 5 % (4-13); Mean Corpuscular HGB 32.7 pg (26.0-34.0); Mean Corpuscular Volume 91 fL (80-100); Mean Platelet Volume 9.5 fL (9.1-12.4); NEUTROPHILS PERCENT AUTO 87 % (41-73); Platelet Count 297 K/mm3 (150-400); RDW Coefficient Variation 12.1 % (11.7-14.2); RDW Standard Deviation 39.8 fL (35.1-46.3); Red Blood Cell Count 5.02 M/mm3 (4.30-5.90); White Blood Cell Count 15.58 K/mm3 (4.00-11.30)
[2023-02-01 02:10] LABS: Alanine Aminotransfer (ALT/SGP 36 U/L (12-78); Albumin, Blood 2.5 g/dL (3.4-5.0); Albumin/Globulin Ratio 0.6 (0.8-1.8); Alk Phos 149 U/L (50-136); Anion Gap 7 mmol/L (6-16); Aspartate Aminotrans (AST/SGOT 28 U/L (12-37); Bilirubin, Total 0.7 mg/dL (0.1-1.0); Blood Urea Nitrogen 6 mg/dL (8-24); Bun/Creatinine Ratio 10.3 (12.0-20.0); CO2, Blood 24 mmol/L (21-32); Calcium, Blood 8.8 mg/dL (8.5-10.1); Chloride, Blood 104 mmol/L (98-108); Creatinine, Blood 0.58 mg/dL (0.60-1.20); Ethanol (Alcohol), Blood, Med <3 mg/dL; Globulin, Blood 4.4 g/dL (2.2-4.0); Glomerular Filtration Rate 115 (60-); Glucose, Blood 122 mg/dL (70-99); Magnesium, Blood 1.9 mg/dL (1.6-2.4); Potassium, Blood 3.8 mmol/L (3.5-5.5); Sodium, Blood 135 mmol/L (136-145); Total Protein, Blood 6.9 g/dL (6.4-8.2)
[2023-02-01 02:59] LABS: Influenza A, PCR NEGATIVE (NEGATIVE); Influenza B, PCR NEGATIVE (NEGATIVE); Resp Syncytial Virus, PCR NEGATIVE (NEGATIVE); SARS-Cov-2 (COVID-19) PCR, MMC NEGATIVE (NEGATIVE)
[2023-02-01 03:00] VITALS: BP 166/86
[2023-02-01] MEDS ORDERED: CEFD300 PO (05:04)
[2023-02-01] MEDS ORDERED: Zithromax250 MG PO (05:04)
== END 2023-02-01 05:15 | disposition home or self-care (01) ==
LOC: ER 01:24
PROVIDERS: Emergency Medicine
DX: J18.9 Pneumonia, unspecified organism (principal); I10 Essential (primary) hypertension; F17.210 Nicotine dependence, cigarettes, uncomplicated; Z20.822 Contact with and (suspected) exposure to COVID-19; Z79.899 Other long term (current) drug therapy
CPT/HCPCS: 0241U; 36415; 71046; 80053; 83605; 83735; 83880; 84145; 84484; 85025; 87040; 93005; 93010; 96361; 96365; 96375; 99285-25; A9270; G0480; J0696; J1885; J7120

== ENCOUNTER 2023-07-14 18:41 | Emergency (ER) | payer OTHER ==
[~2023-07-14] VITALS: Ht 177.8 cm; Wt 99.8 kg
[~2023-07-14 18:41] MED LIST changes: +CEFD300 PO; +PREG25; +Zithromax250 MG PO
[2023-07-14] MEDS ORDERED: AMLODIPINE BESYL5 MG PO (19:47)
[2023-07-14] MEDS ORDERED: FOLI1 PO (19:47)
[2023-07-14] MEDS ORDERED: IPRAT-ALBUT 0.5-3 ML IH (19:48)
[2023-07-14] MEDS ORDERED: Famotidine 10 MG/ML 2ML Vial IV ONE (20:55)
[2023-07-14] MEDS ORDERED: DiphenhydrAMINE HCl 50 MG/ML 1ML Vial IV ONE (20:55)
[2023-07-14] MEDS ORDERED: MethylPREDNISolone Sod Succ 125 MG Vial IV ONE (20:55)
[2023-07-14 22:15] VITALS: BP 143/80
[2023-07-14] MEDS ORDERED: EPIPEN0.3 MG/0.1 IM (22:27)
[2023-07-14] MEDS ORDERED: DIPH25 PO (22:27)
[2023-07-14] MEDS ORDERED: PRED20 PO (22:27)
== END 2023-07-14 22:36 | disposition home or self-care (01) ==
LOC: ER 18:41
DX: L50.9 Urticaria, unspecified (principal); K13.0 Diseases of lips; I10 Essential (primary) hypertension; F17.210 Nicotine dependence, cigarettes, uncomplicated; Z79.899 Other long term (current) drug therapy; Z88.8 Allergy status to other drugs, medicaments and biological substances
CPT/HCPCS: 96374; 96375; 99283-25; J1200; J2930

== ENCOUNTER → 2025-01-29 | Outpatient (CLI) | payer MEDICARE, OTHER ==
[~2025-01-29] MED LIST changes: +AMLODIPINE BESYL5 MG PO; +DIPH25 PO; +EPIPEN0.3 MG/0.1 IM; +FOLI1 PO; +IPRAT-ALBUT 0.5-3 ML IH; +OXAYDO5 M1 PO
[2025-01-29 14:09] LABS: Hematocrit 45.9 % (37.0-53.0); Hemoglobin 16.1 g/dL (13.5-17.5); Mean Corpuscular HGB Conc 35.1 g/dL (31.5-36.5); Mean Corpuscular Volume 98 fL (80-100); NRBC ABSOLUTE 0.00 K/mm3 (0.00-0.02); NRBC Auto 0.0 /100 WBC (0.0-0.2); Platelet Count 259 K/mm3 (150-400); RDW Coefficient Variation 13.0 % (11.7-14.2); RDW Standard Deviation 46.2 fL (35.1-46.3)
[2025-01-29 15:43] LABS: Very Low Density Lipoprot Chol 11 mg/dL (6-32)
[2025-01-29 15:56] LABS: Alanine Aminotransfer (ALT/SGP 48 U/L (12-78); Albumin, Blood 3.3 g/dL (3.4-5.0); Albumin/Globulin Ratio 0.9 (0.8-1.8); Anion Gap 13 mmol/L (3-11); Aspartate Aminotrans (AST/SGOT 95 U/L (12-37); Bilirubin, Total 0.6 mg/dL (0.1-1.0); Blood Urea Nitrogen 5 mg/dL (8-24); CHOL/HDL RATIO 1.3; CO2, Blood 22 mmol/L (21-32); Calcium, Blood 8.9 mg/dL (8.5-10.1); Chloride, Blood 99 mmol/L (98-108); Cholesterol 215 mg/dL (50-200); Creatinine, Blood 0.50 mg/dL (0.60-1.20); Globulin, Blood 3.8 g/dL (2.2-4.0); Glucose, Blood 92 mg/dL (70-99); HDL Cholesterol 170 mg/dL (>39); LDL/HDL RATIO 0.2; Low Density Lipoprotein Chol 34 mg/dL (0-110); Potassium, Blood 4.0 mmol/L (3.5-5.5); Sodium, Blood 130 mmol/L (136-145); Total Protein, Blood 7.1 g/dL (6.4-8.2); Triglycerides 56 mg/dL (30-160)
== END ==
LOC: LAB 12:34 → LAB SHORT 12:34
DX: I10 Essential (primary) hypertension (principal); Z79.891 Long term (current) use of opiate analgesic
CPT/HCPCS: 80053; 80061; 83036; 85027